=== PATIENT | male | born 1935 | race Caucasian/White ===

== ENCOUNTER 2016-10-08 14:28 | Emergency (ER) | payer MEDICARE | END 2016-10-08 16:35 | disposition home or self-care (01) | LOC: D.ER 14:28 | DX: L03.116 Cellulitis of left lower limb (principal) ==

== ENCOUNTER → 2017-01-22 17:06 | Outpatient (CLI) | payer MEDICARE | END | disposition home or self-care (01) | LOC: D.LABREF 17:06 | DX: N39.0 Urinary tract infection, site not specified (principal) ==

== ENCOUNTER → 2017-02-14 14:31 | Outpatient (CLI) | payer MEDICARE | END | disposition home or self-care (01) | LOC: D.RAD 14:31 | DX: M54.5 Low back pain (principal) ==

== ENCOUNTER 2017-06-07 05:10 | Day surgery (SDC) | payer MEDICARE ==
[2017-06-06 09:58] LABS: BASOPHILS 0.1 % (0-2); EOSINOPHILS 0.9 % (0-7); HEMATOCRIT 42.7 % (42.0-54.0); HEMOGLOBIN 13.8 g/dL (13.5-17.5); IMMATURE GRANULOCYTES 0.2 % (0-5); MCH 30.9 pg (26.0-34.0); MCHC 32.3 g/dL (31.0-37.0); MCV 95.7 fL (80.0-100.0); MONOCYTES 8.9 % (2-11); NEUTROPHILS 66.9 % (40-80); PLATELET COUNT 227 10x3/uL (130-400); RBC 4.46 10x6/uL (4.20-6.10); RDW 13.4 % (11.5-14.5); WBC 8.5 10x3/uL (4.8-10.8)
[2017-06-06 10:21] LABS: CALC OSMOLALITY 284 mosm/kg (275-300); CHLORIDE - SERUM 106 mmol/L (98-107); GLUCOSE 78 mg/dL (74-106); POTASSIUM - SERUM 4.2 mmol/L (3.5-5.1); SODIUM 142 mmol/L (136-145); UREA NITROGEN 20 mg/dL (7-18); eGFR NON AFRICAN AMERICAN 76 mL/min (90-120)
[~2017-06-07] VITALS: Ht 177.8 cm; Wt 82.1 kg
--- NOTE | ~2017-06-07 | OP ---
PATIENT NAME: FRANKLYN LINN MEDICAL RECORD: [id number] :35 LOCATION:D.OPS ADMISSION DATE: SURGEON: FRANKLYN LANDRY MD DATE OF OPERATION: 06/07/2017 SURGEON: Franklyn Landry MD ANESTHESIA: Spinal anesthesia by Fran Ferguson CRNA PREOPERATIVE DIAGNOSIS: Obstructive BPH. PROCEDURES: Cystoscopy; GreenLight laser transurethral resection of the prostate, power 80-120 cheema, energy is 89,141 kilojoules. Laser on time 16 minutes and 56 seconds. FINDINGS: Normal penile urethra. Primary bladder neck obstruction. Single ureteral orifices bilaterally. No bladder tumors. Heavily trabeculated bladder with cellules and diverticula. BLOOD LOSS: None. CLINICAL HISTORY: This is an 81-year-old male with significant bladder outlet obstruction symptoms and BPH. He has been on finasteride and tamsulosin for over 5 years. He does get postural hypotension from the tamsulosin. He has nocturia q. 2 h and slow urinary stream. There is hesitancy getting started. The patient wished to have a TURP electively. 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 He had cardiac clearance from Dr. Salgado. HE IS ALLERGIC TO NAPROXEN. He had [employer] licensed tax consultant to the OR. DESCRIPTION OF PROCEDURE: The patient was given a spinal anesthetic. He was then placed in the dorsal lithotomy position and prepped and draped. He had some urethral meatal stenosis and we used sounds to dilate his urethra to 26-Belarusian. The laser resectoscope was then introduced using the visual obturator. Findings are as outlined above. The main site of obstruction seems to be bladder neck and median lobe. The lateral lobes are not obstructive. Going into the bladder, he has quite significant trabeculation with cellules and diverticula, indicative of obstruction. No bladder tumors were seen. The ureteral orifices were located some distance away from the bladder neck. Resecting between the bladder neck and just proximal to the verumontanum on the floor of the prostate, we made a large channel through the bladder neck. An 80 cheema of power was used at this time. An 80 cheema of power was also used to devascularize the prostatic urethra of the lateral lobes. The resection was kept up to just proximal to the verumontanum. However, there was some bleeding encountered at the lateral lobes and therefore these had to be resected little further distal to the verumontanum to control the bleeding. Once we had a good channel in the posterior wall, then I swept from the right to left lateral lobes in a U-shaped pattern and we resected the lateral lobes on the posterior wall simultaneously. Eventually, once the posterior wall was down to the capsule, I resected each of the lateral lobes and turned down to the pseudocapsule. We identified the level of the pseudocapsule by unroofing several prostatic stones. Finally, there was some bleeding from the anterior fibromuscular stroma at the bladder neck level. This had to be resected at that point. At the end of the procedure, when we were sitting at the verumontanum, which was left intact, we could see a wide open channel all the way through the prostatic urethra to the bladder neck. No bleeding at all, venous or arterial, was seen. The bladder OPERATIVE REPORT [id number] FRANKLYN LINN was left full with irrigation fluid and the scope had a Sensor wire placed through it into the bladder. The scope was then removed, leaving the Sensor wire in place. Over the Sensor wire, we inserted a 22-Belarusian 3-way Agdaagux tip Hairston catheter. Once the catheter was fully in the bladder, the balloon was inflated with 30 cc of sterile water. The Sensor wire was then completely removed. The inflow port of the 3-way Hairston catheter was capped and the catheter was put to bag drainage. The patient will be going home today with Tylenol No. 3, #30 tablets, with no refills. We will see him in the office tomorrow for a voiding trial. TRANSINT:[id number] Voice Confirmation ID: [id number] DOCUMENT ID: [id number] FRANKLYN LANDRY MD at 1313 CC: [id number] DICTATION DATE: 06/07/17 09 JAVA LEAD DEVELOPER: 06/07/17 1215 [facility] [address] [place] [id number]
[2017-06-07 06:25] VITALS: BP 125/73; Ht 177.8 cm; Wt 82.1 kg
== END 2017-06-07 11:40 | disposition home or self-care (01) ==
LOC: D.OPS 05:10 → D.PAN 07:30 → D.OPS 07:30
PROVIDERS: Anesthesiology
DX: N40.1 Benign prostatic hyperplasia with lower urinary tract symptoms (principal); N13.8 Other obstructive and reflux uropathy; R35.1 Nocturia; R39.12 Poor urinary stream; N32.89 Other specified disorders of bladder; N32.3 Diverticulum of bladder; I25.10 Atherosclerotic heart disease of native coronary artery without angina pectoris; Z95.1 Presence of aortocoronary bypass graft; Z88.6 Allergy status to analgesic agent; Z01.812 Encounter for preprocedural laboratory examination

== ENCOUNTER 2017-08-01 05:51 | Day surgery (SDC) | payer MEDICARE ==
--- NOTE | ~2017-08-01 | OP ---
PATIENT NAME: FRANKLYN LINN MEDICAL RECORD: [id number] :35 LOCATION:D.OPS ADMISSION DATE: SURGEON: FRANKLYN AUGUSTIN MD DATE OF OPERATION: 08/01/2017 CHIEF COMPLAINT: 1. Hematochezia. 2. Intractably symptomatic external hemorrhoids. 3. Bleeding internal hemorrhoids. POSTOPERATIVE DIAGNOSES: 1. Hematochezia. 2. Intractably symptomatic external hemorrhoids. 3. Bleeding internal hemorrhoids. 4. 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 PROCEDURES: 1. Procedure for prolapse and hemorrhoids. 2. Placement of cutting seton. 3. Curettage with packing of fistulous tract. SURGEON: Franklyn Augustin MD CADD INSTRUCTOR: None. BLOOD LOSS: Minimal. ANESTHESIA: General. COMPLICATIONS: None. The risks, possible complications, and alternatives to the procedure were explained to the patient. He elects to proceed. No fissure was identified. The cutting seton was placed at the site of an anal fistula and there was only a small bridge of tissue, through which I had to place the seton. The other fistula was confirmed through the injection of hydrogen peroxide, and on visualizing this as it came through a fistulous tract which was up into the rectum, the tract was just lateral to the median raphe and was anterior to the anus and the tract was about 6 cm long. I elected initially to try to treat this with packing alone as I was unable to get a probe to pass from the fistulous opening into the rectum and therefore I was unable to place a seton. OPERATIVE COURSE: The patient was conveyed to the operating room electively on 08/01/2017. General anesthesia was induced by the anesthesia staff. The patient was placed in the lithotomy position. The buttocks were taped laterally. The anus and perianal areas were sterilely prepped and draped. U-shaped anal retractors were placed. I identified an anal fistula. I identified an opening that was draining purulent material anterior to the anus. With the U-shaped anal retractors in place, I injected hydrogen peroxide through the fistulous opening and was able to witness this entering the rectum. I curettaged this long tract. I was OPERATIVE REPORT [id number] FRANKLYN LINN unable to get a probe to advance through the fistulous opening into the rectum. I dilated to 3 fingers. A PPH dilator retractor was placed. The retractor was sewn in place to the surrounding anoderm with 2-0 silk sutures. A mucosal pursestring suture of 2-0 Prolene was applied 1 cm cephalad to the clear retractor. The PPH stapling device was advanced with the cone cephalad to the pursestring suture, which was then tightened and tied. The PPH stapling device was held in place for 2 minutes and then fired. It was then removed under direct vision. There was an entire donut of mucosal and hemorrhoidal tissue within the stapling device. Bleeding along the anastomotic staple line was controlled with [id number] 3-0 Vicryls. I then placed a seton consisting of a #0 Surgidac suture through the anal fistula. I then packed quarter-inch ribbon gauze down through the fistulous tract anterior to the anus. Gelfoam was applied within the anus and the lower rectum. A combination of steroid preparation and Marcaine was used to infiltrate the perianal tissues. An anesthetic ointment was applied to the external hemorrhoids. The patient was then extubated and conveyed to the postanesthesia care unit where he was in stable condition. TRANSINT:[id number] Voice Confirmation ID: [id number] DOCUMENT ID: [id number] FRANKLYN AUGUSTIN MD at 1816 CC: [id number] DICTATION DATE: 08/16/17 170 ICEBOX WORKER: 08/16/172010 [facility] 08/01/17 [id number] [place] [address]
[2017-08-01 06:09] LABS: BASOPHILS 0.1 % (0-2); EOSINOPHILS 1.2 % (0-7); HEMATOCRIT 43.5 % (42.0-54.0); HEMOGLOBIN 14.6 g/dL (13.5-17.5); IMMATURE GRANULOCYTES 0.4 % (0-5); LYMPHOCYTES 25.7 % (15-50); MCH 31.3 pg (26.0-34.0); MCHC 33.6 g/dL (31.0-37.0); MCV 93.1 fL (80.0-100.0); MEAN PLATELET VOLUME 9.2 fL (7.4-10.4); MONOCYTES 8.5 % (2-11); NEUTROPHILS 64.1 % (40-80); PLATELET COUNT 190 10x3/uL (130-400); RBC 4.67 10x6/uL (4.20-6.10); RDW 13.7 % (11.5-14.5); WBC 8.6 10x3/uL (4.8-10.8)
[2017-08-01 07:23] LABS: ANION GAP 13.7 mmol/L (8-16); CARBON DIOXIDE 26.2 mmol/L (21.0-32.0); CREATININE - SERUM 1.1 mg/dL (0.6-1.3); POTASSIUM - SERUM 3.9 mmol/L (3.5-5.1)
[2017-08-01] MEDS ORDERED: [UNRECOGNIZED DRUG - OTHER] (07:55)
[2017-08-01] MEDS ORDERED: LIPITOR80 MG PO (07:56)
[2017-08-01] MEDS ORDERED: BAYER CHEWABLE81 MG PO (07:56)
[2017-08-01] MEDS ORDERED: FLUTICASONE PRO16 GM NASAL (07:57)
[2017-08-01] MEDS ORDERED: ISOSORBIDE MONO30 M1 PO (07:59)
[2017-08-01 08:12] VITALS: BP 135/81; BMI 25.5
== END 2017-08-01 14:39 | disposition home or self-care (01) ==
LOC: D.OPS 05:51 → D.PAN 08:00 → D.OPS 08:00
PROVIDERS: Anesthesiology
DX: K92.1 Melena (principal); K64.8 Other hemorrhoids; K64.4 Residual hemorrhoidal skin tags; K60.5 Anorectal fistula; K60.4 Rectal fistula; Z01.812 Encounter for preprocedural laboratory examination

== ENCOUNTER 2018-02-10 08:32 | Emergency (ER) | payer OTHER ==
[~2018-02-10] VITALS: Ht 177.8 cm; Wt 84.5 kg
[~2018-02-10 08:32] MED LIST: BAYER CHEWABLE81 MG PO; FLUTICASONE PRO16 GM NASAL; ISOSORBIDE MONO30 M1 PO; LIPITOR80 MG PO; [UNRECOGNIZED DRUG - OTHER]
[2018-02-10 08:41] VITALS: Ht 177.8 cm; Wt 84.5 kg
[2018-02-10] MEDS ORDERED: [UNRECOGNIZED DRUG - REMARK] (08:44)
[2018-02-10 11:44] VITALS: BP 142/86
== END 2018-02-10 11:44 | disposition home or self-care (01) ==
LOC: D.ER 08:32
DX: M79.632 Pain in left forearm (principal)